=== PATIENT | male | born 1960 | race African-American/Black ===

== ENCOUNTER 2024-06-24 18:58 | Inpatient (IN) | payer OTHER, MEDICAID ==
[~2024-06-24] VITALS: Ht 185.4 cm; Wt 98.4 kg
[2024-06-24 19:00] VITALS: BP 124/53; PULSE 80; RESP 16; TEMP 97.2; O2SAT 96
[2024-06-24] MEDS: NACL 0.9% 1,000 ML IV ONE (20:12)
[2024-06-24 20:17] VITALS: BP 124/53; PULSE 80; RESP 16; TEMP 97.2; O2SAT 96
[2024-06-24 20:37] LABS: BASOPHILS # (AUTO) 0.1 K/uL (0.00-0.22); BASOPHILS % (AUTO) 0.9 % (0.0-2.0); EOSINOPHILS # (AUTO) 0.1 K/uL (0-0.4); EOSINOPHILS % (AUTO) 1.4 % (0.0-4.0); HEMATOCRIT 39.5 % (36-52); HEMOGLOBIN 12.3 g/dL (12.0-18.0); LYMPHOCYTES % (AUTO) 22.4 % (20.5-51.1); MEAN CORPUSCULAR HEMOGLOBIN 24 pg (27-31); MEAN CORPUSCULAR HGB CONC 31 g/dL (33-37); MONOCYTES # (AUTO) 0.6 K/uL (0.8-1.0); MONOCYTES % (AUTO) 6.8 % (1.7-9.3); NEUTROPHILS # (AUTO) 6.2 K/uL (1.8-7.7); NEUTROPHILS % (AUTO) 68.5 % (42.2-75.2); PLATELET COUNT (AUTO) 245 K/uL (140-450); RED BLOOD CELL COUNT(AUTO) 5.26 MIL/uL (4.20-6.10); RED CELL DISTRIBUTION WIDTH 15.5 % (11.6-13.7)
[2024-06-24 20:44] LABS: CALCIUM 8.8 mg/dL (8.5-10.1); CREATININE 1.3 mg/dL (0.6-1.3); POTASSIUM 4.1 mmol/L (3.5-5.1)
[2024-06-24 20:49] LABS: INR 0.95 (0.8-1.2); PARTIAL THROMBOPLASTIN TIME 24.7 secs (22-35.6)
[2024-06-24 20:50] LABS: ANION GAP 12.7 (8-16); CARBON DIOXIDE 25.4 mmol/L (21-32)
[2024-06-24 20:58] LABS: ALANINE AMINOTRANSFERASE 18 U/L (12-78); ALBUMIN 3.3 g/dL (3.4-5.0); ALKALINE PHOSPHATASE 92 U/L (50-136); ASPARTATE AMINOTRANSFERASE 9 U/L (15-37); BILIRUBIN,DIRECT 0.1 mg/dL (0.0-0.3); CREATINE KINASE, TOTAL 147 U/L (39-308); PHOSPHORUS 3.2 mg/dL (2.5-4.9); THYROID STIMULATING HORMONE 2.07 uIU/mL (0.34-3.74); TOTAL BILIRUBIN 0.3 mg/dL (0.0-1.0); TOTAL PROTEIN, SERUM 6.8 g/dL (6.4-8.2)
[2024-06-24 21:18] LABS: APPEARANCE,URINE CLEAR (CLEAR); BILIRUBIN,URINE NEGATIVE (NEGATIVE); BLOOD, URINE NEGATIVE (NEGATIVE); COLOR,URINE YELLOW (YELLOW); LEUKOCYTE ESTERASE ,URINE NEGATIVE (NEGATIVE); NITRITE, URINE NEGATIVE (NEGATIVE); PROTEIN,URINE NEGATIVE (NEGATIVE); UGLUCOSE NEGATIVE (NEGATIVE); UROBILINOGEN,URINE 0.2 EU/dL (0.2 - 1)
[2024-06-25] VITALS: BP 96/69; PULSE 62; RESP 18; TEMP 96.9; O2SAT 98
[2024-06-25] MEDS ORDERED: ZOLPIDEM 5 MG TAB PO PRN (00:35)
[2024-06-25] MEDS ORDERED: LORazepam 1 MG TAB PO PRN (00:35)
[2024-06-25] MEDS ORDERED: ACETAMINOPHEN 325 MG TAB PO PRN (00:35)
[2024-06-25] MEDS ORDERED: ONDANSETRON 4 MG/2 ML VIAL IVP PRN (00:35)
[2024-06-25] MEDS ORDERED: HYDROcodone/APAP 5/325 MG 1 TAB TAB PO PRN (00:35)
[2024-06-25 01:25] VITALS: PULSE 62; RESP 17; O2SAT 98
[2024-06-25] MEDS: NACL 0.9% 1,000 ML IV SCH (01:52)
[2024-06-25 04:00] VITALS: BP 124/64; RESP 17; TEMP 96.9; O2SAT 100
[2024-06-25 08:00] VITALS: BP 129/77; PULSE 61; PULSE 62; RESP 17; TEMP 97; O2SAT 95
[2024-06-25 16:00] VITALS: BP 124/76; PULSE 71; RESP 18; TEMP 97; O2SAT 98
[2024-06-25 20:00] VITALS: BP 117/56; PULSE 69; RESP 18; TEMP 97.6; O2SAT 96
[2024-06-26] VITALS: BP 117/56; PULSE 69; RESP 18; TEMP 97.6; O2SAT 96
[2024-06-26 04:00] VITALS: BP 110/56; PULSE 60; RESP 18; TEMP 96.8; O2SAT 97
[2024-06-26 08:00] VITALS: BP 119/63; PULSE 60; RESP 18; TEMP 97.7; O2SAT 97
[2024-06-26 12:04] VITALS: O2SAT 95
[2024-06-26] MEDS ORDERED: ACET-1182 PO (12:23)
[2024-06-26 13:15] VITALS: BP 119/63; PULSE 60; RESP 18; TEMP 97.7
[2024-06-26 16:00] VITALS: BP 129/64; PULSE 71; RESP 18; TEMP 96.9; O2SAT 96
== END 2024-06-26 17:55 | disposition home or self-care (01) | DRG 948 ==
LOC: MED 18:58 → MTU 06-25 00:32 → OBSVTOIN 06-25 00:32 → MTU 06-25 01:10
PROVIDERS: ADMIT Student in an Organized Health Care Education/Training Program; ATTEND Student in an Organized Health Care Education/Training Program
DX: R53.1 Weakness (principal); I69.351 Hemiplegia and hemiparesis following cerebral infarction affecting right dominant side; E44.1 Mild protein-calorie malnutrition; R64 Cachexia; I10 Essential (primary) hypertension; E78.5 Hyperlipidemia, unspecified; Z85.72 Personal history of non-Hodgkin lymphomas; Z68.28 Body mass index [BMI] 28.0-28.9, adult
CPT/HCPCS: 36415; 70450; 71045; 80048; 80076; 81003; 82550; 83735; 83880; 84100; 84443; 84484; 85025; 85610; 85730; 87081; 93005; 96360; 97110; 97116; 97163-GP; 97530; 99285; Q0092